=== PATIENT | female | born 1945 | race Caucasian/White ===

== ENCOUNTER 2018-07-10 18:19 | Emergency (ER) | END 2018-07-10 21:27 | disposition home or self-care (01) ==

== ENCOUNTER 2019-02-28 11:46 | Emergency (ER) | payer OTHER ==
[~2019-02-28] VITALS: Ht 154.9 cm; Wt 61.1 kg
[~2019-02-28 11:46] MED LIST: AMLO-147 PO; ASPI-1046 PO; BENA10TA4 PO; BENA40TA56 PO; CEPH-443 PO; CEPH500C PO; CIPR500T4 PO; DOCU-211 PO; ELIM TOP; PHEN-538 PO; RANI150C11 PO; RANI150T35 PO; TRAM50TA2 PO; TYL500 PO; [UNRECOGNIZED DRUG - CODE]
[2019-02-28 11:56] VITALS: BP 167/71; PULSE 80; RESP 18; Ht 154.9 cm; Wt 61.1 kg
[2019-02-28] MEDS ORDERED: TRIA15CR55 TOP (12:37)
[2019-02-28] MEDS ORDERED: PRED20TA PO (12:37)
[2019-02-28] MEDS ORDERED: CETI10TA19 PO (12:37)
--- NOTE | 2019-02-28 12:43 | ERD ---
ER Documentation Chief Complaint Chief Complaint painful bumps/rash on bilateral wrists, R lower leg, nausea X 2 days HPI 74-year-old female presents with itchy rash on the left wrist, bilateral lower extremities. She has nausea without vomiting patient has fevers, shortness of breath, abdominal pain. Patient denies any known inciting events and believes it may be a food allergy. She denies any known insect bites or previous allergies. ROS All systems reviewed and are negative except as per history of present illness. Medications Home Meds Active Scripts Triamcinolone Acetonide (Triamcinolone Acetonide) 0.1% - 15 Gm Cream.gm., 1 APPLIC TOP BID, #1 TUB 30g ok Prov:ANYA PEARL MD 02/28/19 Cetirizine Hcl* (Cetirizine Hcl*) 10 Mg Tablet, 10 MG PO DAILY, #15 TAB Prov:ANYA PEARL MD 02/28/19 Prednisone* (Prednisone*) 20 Mg Tab, 40 MG PO DAILY for 4 Days, TAB Prov:ANYA PEARL MD 02/28/19 Permethrin* (Elimite*) 5% Cr, 1 APPLIC TOP ONCE, #1 TUB Prov:AZEEM RUELAS PA-C 07/10/18 Benazepril Hcl* (Benazepril Hcl*) 10 Mg Tablet, 10 MG PO DAILY, #30 TAB Prov:AZEEM RUELAS PA-C 07/10/18 Amlodipine Besylate* (Amlodipine Besylate*) 10 Mg Tablet, 10 MG PO DAILY, #30 TAB Prov:AZEEM RUELAS PA-C 07/10/18 Ranitidine Hcl* (Zantac*) 150 Mg Tablet, 150 MG PO BID PRN for EPIGASTRIC PAIN, #30 TAB Prov:AZEEM RUELAS PA-C 07/10/18 Ciprofloxacin Hcl* (Ciprofloxacin Hcl*) 500 Mg Tablet, 500 MG PO BID, #14 TAB Prov:KALI GIFFORD MD 03/15/16 Tramadol HCl (Tramadol HCl) 50 Mg Tablet, 50 MG PO Q4 PRN for PAIN, #14 TAB Prov:ANYA PEARL MD 11/23/15 Acetaminophen* (Tylenol*) 500 Mg Tab, 500 MG PO Q4H PRN for MILD PAIN LEVEL 1-3 for 14 Days, TAB Prov:ANYA PEARL MD 11/23/15 Cephalexin* (Cephalexin*) 500 Mg Capsule, 500 MG PO QID, #28 CAP Prov:ANYA PEARL MD 11/23/15 Ciprofloxacin Hcl* (Ciprofloxacin Hcl*) 500 Mg Tablet, 500 MG PO BID for 7 Days, TAB Prov:MARÍA ELENA GIPSON MD 08/13/15 Phenazopyridine Hcl* (Pyridium*) 200 Mg Tab, 200 MG PO TID PRN for DYSURIA, #6 TAB Prov:ANYA PEARL MD 08/11/15 Cephalexin* (Keflex*) 500 Mg Capsule, 500 MG PO QID for 5 Days, CAP Prov:ANYA PEARL MD 08/11/15 Reported Medications Chol Bitart/Aa10/Sean/Hc129 (Theramine Capsule) 101.5 Mg Capsule 01/18/12 Docusate Sodium (Doc-Q-Lace) 100 Mg Capsule, 100 MG PO DAILY 01/18/12 Aspirin* (Aspirin* (EC)) 81 Mg Tablet.dr, 81 MG PO DAILY 01/18/12 Amlodipine Besylate* (Amlodipine Besylate*) 10 Mg Tablet, 10 MG PO DAILY 12 Benazepril Hcl* (Benazepril Hcl*) 40 Mg Tablet, 40 MG PO DAILY 01/18/12 Ranitidine Hcl (Ranitidine Hcl) 150 Mg Capsule, 150 MG PO BID 01/18/12 Allergies Allergies: Coded Allergies: No Known Drug Allergies (Verified Allergy, Unknown, 08/13/15) PMhx/Soc History of Surgery: Yes (bladder surgery,hysterectomy) Anesthesia Reaction: No Hx Neurological Disorder: No Hx Respiratory Disorders: No Hx Cardiac Disorders: Yes (HTN, high chol) Hx Psychiatric Problems: No Hx Miscellaneous Medical Probl: No Hx Alcohol Use: No Hx Substance Use: No Hx Tobacco Use: No FmHx Family History: No diabetes, No coronary disease, No other Physical Exam Vitals Vital Signs Date Temp Pulse Resp B/P (MAP) Pulse Ox O2 O2 Flow FiO2 Time Delivery Rate 02/28/19 99.9 80 18 167/71 96 11:56 (103) Physical Exam Const: No acute distress Head: Atraumatic Eyes: Normal Conjunctiva ENT: Normal External Ears, Nose and Mouth. Neck: Full range of motion. No meningismus. Resp: Clear to auscultation bilaterally Cardio: Regular rate and rhythm, no murmurs Abd: Soft, non tender, non distended. Normal bowel sounds Skin: No petechiae or rashes. Scattered maculopapular excoriated lesions on the left wrist, right calf and chest wall. No induration, streaking, vesicles. Back: No midline or flank tenderness Ext: No cyanosis, or edema Neur: Awake and alert Psych: Normal Mood and Affect Procedures/MDM Patient presents with nonspecific itchy rash on extremities and trunk for the l ast 2 days. She has no signs of anaphylaxis, cellulitis, purpura or life- threatening rashes. She may be having unspecified local allergic reaction. She will be treated with Zyrtec, short course of prednisone, triamcinolone, primary care follow-up and return precautions. The patient was stable with no new complaints during the ER course. Clinically, there is no current evidence to suggest meningitis, sepsis, acute abdomen, pneumonia, stroke, acute coronary syndrome, pulmonary embolism, aortic dissection or any other emergent condition appearing to require further evaluation or hospitalization. Patient counseled regarding my diagnostic impression and care plan. Prior to discharge all questions answered. Pt agrees with treatment plan and understands strict return precautions. Pt is instructed to follow up with primary care provider within 24- 48 hours. Precautionary instructions provided including instructions to return to the ER if not improving or for any worsening or changing symptoms or concerns. Disclaimer: Inadvertent spelling and grammatical errors are likely due to EHR/dictation software use and do not reflect on the overall quality of patient care. Also, please note that the electronic time recorded on this note does not necessarily reflect the actual time of the patient encounter. Departure Diagnosis: Primary Impression: Rash Condition: Stable Patient Instructions: Dermatitis, Non-Specific Referrals: DOCTOR,NOT ON STAFF (PCP) Additional Instructions: Cheque otro vez con butt doctor primario en el proximo pimentel or regresa para mas o nueva simptomas. ANYA PEARL MD February 28, 2019 12:43
== END 2019-02-28 15:10 | disposition home or self-care (01) ==
LOC: FTE 11:46
DX: R21 Rash and other nonspecific skin eruption (principal); I10 Essential (primary) hypertension; Z79.82 Long term (current) use of aspirin
CPT/HCPCS: 99283

== ENCOUNTER 2019-03-02 10:49 | Emergency (ER) | payer OTHER ==
[~2019-03-02] VITALS: Ht 167.6 cm; Wt 85.0 kg
[~2019-03-02 10:49] MED LIST changes: +CETI10TA19 PO; +PRED20TA PO; +TRIA15CR55 TOP
[2019-03-02 10:54] VITALS: Ht 167.6 cm; Wt 85.0 kg
[2019-03-02] MEDS ORDERED: BENA10TA4 PO (12:10)
[2019-03-02] MEDS ORDERED: AMLO-147 PO (12:10)
[2019-03-02] MEDS ORDERED: ELIM TOP (12:10)
[2019-03-02 13:07] VITALS: BP 142/67; PULSE 77; RESP 20
--- NOTE | 2019-03-02 13:12 | ERD ---
ER Documentation Chief Complaint Chief Complaint Patient here for a medication refill HPI 74-year-old female patient with a past medical history of hypertension, scabies presents to the ED for medication refill for her hypertensive medications. States that she was here 2 days ago for a rash, feels like is not getting any better with the prednisone, triamcinolone and cetirizine. Reports that she may have gotten bitten by mosquitoes on her face however her left wrist and hand are very itchy. States that the cream that she got in June 2018 worked for her symptoms. Denies any new use of soaps, detergents. Denies wearing any new close. Denies eating any new foods. Denies any chest pain, shortness of breath, nausea, vomiting, diarrhea, neck stiffness. ROS All systems reviewed and are negative except as per history of present illness. Medications Home Meds Active Scripts Permethrin* (Elimite*) 5% Cr, 1 APPLIC TOP ONCE, #1 TUB Prov:JOSE GONZALEZ PA-C 03/02/19 Benazepril Hcl* (Benazepril Hcl*) 10 Mg Tablet, 10 MG PO DAILY, #30 TAB Prov:JOSE GONZALEZ PA-C 03/02/19 Amlodipine Besylate* (Amlodipine Besylate*) 10 Mg Tablet, 10 MG PO DAILY, #30 TAB Prov:JOSE GONZALEZ PA-C 03/02/19 Triamcinolone Acetonide (Triamcinolone Acetonide) 0.1% - 15 Gm Cream.gm., 1 APPLIC TOP BID, #1 TUB 30g ok Prov:ANYA PEARL MD 02/28/19 Cetirizine Hcl* (Cetirizine Hcl*) 10 Mg Tablet, 10 MG PO DAILY, #15 TAB Prov:ANYA PEARL MD 02/28/19 Prednisone* (Prednisone*) 20 Mg Tab, 40 MG PO DAILY for 4 Days, TAB Prov:ANYA PEARL MD 02/28/19 Permethrin* (Elimite*) 5% Cr, 1 APPLIC TOP ONCE, #1 TUB Prov:AZEEM RUELAS PA-C 07/10/18 Benazepril Hcl* (Benazepril Hcl*) 10 Mg Tablet, 10 MG PO DAILY, #30 TAB Prov:AZEEM RUELAS PA-C 07/10/18 Amlodipine Besylate* (Amlodipine Besylate*) 10 Mg Tablet, 10 MG PO DAILY, #30 TAB Prov:AZEEM RUELAS PA-C 07/10/18 Ranitidine Hcl* (Zantac*) 150 Mg Tablet, 150 MG PO BID PRN for EPIGASTRIC PAIN, #30 TAB Prov:AZEEM RUELAS PA-C 07/10/18 Ciprofloxacin Hcl* (Ciprofloxacin Hcl*) 500 Mg Tablet, 500 MG PO BID, #14 TAB Prov:KALI GIFFORD MD 03/15/16 Tramadol HCl (Tramadol HCl) 50 Mg Tablet, 50 MG PO Q4 PRN for PAIN, #14 TAB Prov:ANYA PEARL MD 11/23/15 Acetaminophen* (Tylenol*) 500 Mg Tab, 500 MG PO Q4H PRN for MILD PAIN LEVEL 1-3 for 14 Days, TAB Prov:ANYA PEARL MD 11/23/15 Cephalexin* (Cephalexin*) 500 Mg Capsule, 500 MG PO QID, #28 CAP Prov:ANYA PEARL MD 11/23/15 Ciprofloxacin Hcl* (Ciprofloxacin Hcl*) 500 Mg Tablet, 500 MG PO BID for 7 Days, TAB Prov:MARÍA ELENA GIPSON MD 08/13/15 Phenazopyridine Hcl* (Pyridium*) 200 Mg Tab, 200 MG PO TID PRN for DYSURIA, #6 TAB Prov:ANYA PEARL MD 08/11/15 Cephalexin* (Keflex*) 500 Mg Capsule, 500 MG PO QID for 5 Days, CAP Prov:ANYA PEARL MD 08/11/15 Reported Medications Chol Bitart/Aa10/Sean/Hc129 (Theramine Capsule) 101.5 Mg Capsule 01/18/12 Docusate Sodium (Doc-Q-Lace) 100 Mg Capsule, 100 MG PO DAILY 01/18/12 Aspirin* (Aspirin* (EC)) 81 Mg Tablet.dr, 81 MG PO DAILY 01/18/12 Amlodipine Besylate* (Amlodipine Besylate*) 10 Mg Tablet, 10 MG PO DAILY 01/18/12 Benazepril Hcl* (Benazepril Hcl*) 40 Mg Tablet, 40 MG PO DAILY 01/18/12 Ranitidine Hcl (Ranitidine Hcl) 150 Mg Capsule, 150 MG PO BID 01/18/12 Allergies Allergies: Coded Allergies: No Known Drug Allergies (Verified Allergy, Unknown, 08/13/15) PMhx/Soc History of Surgery: Yes (bladder surgery,hysterectomy) Anesthesia Reaction: No Hx Neurological Disorder: No Hx Respiratory Disorders: No Hx Cardiac Disorders: Yes (HTN, high chol) Hx Psychiatric Problems: No Hx Miscellaneous Medical Probl: Yes (GERD) Hx Alcohol Use: No Hx Substance Use: No Hx Tobacco Use: No Smoking Status: Never smoker FmHx Family History: No diabetes, No coronary disease Physical Exam Vitals Vital Signs Date Temp Pulse Resp B/P (MAP) Pulse Ox O2 O2 Flow FiO2 Time Delivery Rate 03/02/19 98.2 77 20 142/67 95 Room Air 13:07 (92) 03/02/19 98.4 67 20 147/67 95 10:54 (93) Physical Exam Const: [id number], well-nourished. In no acute distress. Head: Atraumatic, normocephalic Eyes: Normal Conjunctiva without injection. No purulent discharge. PERRLA. EOMI ENT: Normal external ear. Ear canal without erythema. Tympanic membrane pearly hatfield without effusion or bulging. Nasal canal clear with normal turbinates. Moist oropharynx without tonsillar exudates. Non-erythematous pharynx. Uvula midline. No drooling. No trismus. Neck: No cervical midline tenderness. Full range of motion. No meningismus. No cervical lymphadenopathy. No JVD. Resp: Clear to auscultation bilaterally. No wheezing, rhonchi, rales, or crackles. No accessory muscle use. No retractions. Cardio: Regular rate and rhythm. No murmurs, rubs or gallops. Abd: Soft, non tender, non distended. Normal bowel sounds. No palpable masses. No rebound tenderness. No guarding. Negative McBurney's Point. Negative Tamez's Sign. Skin: Normal skin turgor. No petechiae or rashes. 2 cm edematous papule noted on the right frontal scalp likely consistent with mosquito bite. Serpiginous lesions noted on patient's left hand and the dorsal aspect as well as wrist and web spaces, Back: No midline tenderness. No CVA tenderness. Ext: No cyanosis, or edema. Distal pulses intact bilaterally. Neur: Awake and alert. Normal gait. Normal coordination. Cranial Nerves II- VII intact. Normal finger to nose. Muscle strength 5/5. Sensation intact. Psych: Normal Mood and Affect Procedures/MDM 74-year-old female patient with a past medical history of hypertension and sc abies presents to ED for a medication refill. Patient's blood pressure is 147/67. Blood Pressure Assessment: Patient's blood pressure was elevated (>120/80) but appears stable without evidence of hypertension emergency or urgency. The patient was counseled about the risks of hypertension and urged to pursue outpatient monitoring and therapy within a week with their primary care physician. Upon reviewing patient's medical records, patient is taking amlodipine and benazepril for her hypertension, therefore this will be prescribed. Patient was strictly instructed to follow-up with her primary care physician for further evaluation and management of her hypertension. Low suspicion for acute myocardial infarction, pneumothorax, pericarditis, myocarditis, endocarditis, pneumonia, cardiac tamponade, pulmonary embolism, pleural effusion, AAA, aortic dissection, Boerhaave's syndrome, cardiac dysrhythmias,meningitis, intracranial bleed, seizure, stroke, TIA or other emergent conditions. Edematous papule noted on the right frontal scalp likely consistent with mosquito bite. Lesions noted on patient's left hand and the dorsal aspect as well as wrist and web spaces, patient will be treated for possible scabies. Low suspicion for anaphylaxis, SJS/TEN, TSS, Lyme's Disease, syphilis, RMSF, shingles, disseminated gonorrhea chlamydia, DIC, TTP, ITP, erythema multiforme, sepsis, cellulitis, necrotizing fasciitis, gangrene, meningococcemia, allergic contact dermatitis, urticaria, eczema, tinea infection, or other emergent conditions. Diagnosis: Encounter for medication refill, Rash Discharge medications: Elimite, Benazepril, Amlodipine Follow up with primary care physician in 1-2 days. Instructed patient to return to the ED sooner for any worsening symptoms. Patient's questions were answered. Patient is hemodynamically stable. Patient understood and agreed with discharge plan. Patient discharged stable. Disclaimer: Inadvertent spelling and grammatical errors are likely due to EHR/dictation software use and do not reflect on the overall quality of patient care. Also, please note that the electronic time recorded on this note does not necessarily reflect the actual time of the patient encounter. Departure Diagnosis: Primary Impression: Encounter for medication refill Additional Impression: Rash Condition: Stable Patient Instructions: Taking Medicine Safely, Scabies Referrals: [facility], [facility] YOU HAVE RECEIVED A MEDICAL SCREENING EXAM AND THE RESULTS INDICATE THAT YOU DO NOT HAVE A CONDITION THAT REQUIRES URGENT TREATMENT IN THE EMERGENCY DEPARTMENT. FURTHER EVALUATION AND TREATMENT OF YOUR CONDITION CAN WAIT UNTIL YOU ARE SEEN IN YOUR DOCTORS OFFICE WITHIN THE NEXT 1-2 DAYS. IT IS YOUR RESPONSIBILITY TO MAKE AN APPOINTMENT FOR FOLOW-UP CARE. IF YOU HAVE A PRIMARY DOCTOR --you should call your primary doctor and schedule an appointment IF YOU DO NOT HAVE A PRIMARY DOCTOR YOU CAN CALL OUR PHYSICIAN REFERRAL HOTLINE AT IF YOU CAN NOT AFFORD TO SEE A PHYSICIAN YOU CAN CHOSE FROM THE FOLLOWING [facility] [address] [facility]. [facility] [address] [facility] [address] [facility] [facility] [address] [facility]. [facility] [address] [facility]. [facility] [address] [facility]. [facility] YOU HAVE RECEIVED A MEDICAL SCREENING EXAM AND THE RESULTS INDICATE THAT YOU DO NOT HAVE A CONDITION THAT REQUIRES URGENT TREATMENT IN THE EMERGENCY DEPARTMENT. FURTHER EVALUATION AND TREATMENT OF YOUR CONDITION CAN WAIT UNTIL YOU ARE SEEN IN YOUR DOCTORS OFFICE WITHIN THE NEXT 1-2 DAYS. IT IS YOUR RESPONSIBILITY TO MAKE AN APPOINTMENT FOR FOLOW-UP CARE. IF YOU HAVE A PRIMARY DOCTOR --you should call your primary doctor and schedule and appointment IF YOU DO NOT HAVE A PRIMARY DOCTOR YOU CAN CALL OUR PHYSICIAN REFERRAL HOTLINE AT . IF YOU CAN NOT AFFORD TO SEE A PHYSICIAN YOU CAN CHOSE FROM THE FOLLOWING [facility] INSTITUTIONS: [facility] [address] [place] [address] [facility] [address] [place] [address] [facility] + [address] [address] [facility] Additional Instructions: Call your primary care doctor TOMORROW for an appointment during the next 2-3 d ays.See the doctor sooner or return here if your condition worsens before your appointment time. JOSE GONZALEZ PA-C March 02, 2019 13:12
== END 2019-03-02 13:08 | disposition home or self-care (01) ==
LOC: FTE 10:49
DX: Z76.0 Encounter for issue of repeat prescription (principal); I10 Essential (primary) hypertension; R21 Rash and other nonspecific skin eruption; Z79.82 Long term (current) use of aspirin
CPT/HCPCS: 99281